=== PATIENT | female | born 1940 | race African-American/Black ===

== ENCOUNTER 2018-06-01 18:46 | Emergency (ER) | payer MEDICARE ==
[~2018-06-01] VITALS: Ht 167.6 cm; Wt 64.0 kg
[2018-06-01] MEDS ORDERED: ONDANSETRON HCL 4MG/2ML INJ IV STA (19:20)
[2018-06-01] MEDS ORDERED: MORPHINE SULFATE 4 MG/ML CPJ (NOT FOR IM USE) IV ONE (19:30)
[2018-06-01 19:53] LABS: HEMATOCRIT. 31.5 % (36.0-48.0); HEMOGLOBIN. 10.3 g/dL (12.0-16.0); MEAN CORPUSCULAR HEMOGLOBIN 28.1 pg (28.0-32.0); MEAN PLATELET VOLUME 7.8 fl (7.4-10.4); PLATELET 304 x1000/uL (130-400); RED BLOOD CELL COUNT 3.66 mill/uL (4.2-5.4); RED CELL DISTRIBUTION WIDTH 17.1 % (11.6-14.6)
[2018-06-01 19:59] LABS: CHLORIDE 102 mEq/L (98-107)
[2018-06-01 20:02] LABS: INR 1.1
[2018-06-01 20:12] LABS: PLATELET ESTIMATE NORMAL
[2018-06-01] MEDS ORDERED: SODIUM CHLORIDE 0.9% 500 ML IV ONE (20:38)
[2018-06-01 22:56] VITALS: BP 128/57
[2018-06-01] MEDS ORDERED: LEVOFLOXACIN 250MG TABLET PO ONE (23:00)
[2018-06-01] MEDS ORDERED: METRONIDAZOLE 500MG TABLET PO ONE (23:00)
== END 2018-06-01 23:17 | disposition home or self-care (01) ==
LOC: ER 20:13 → CANBEDREQ 06-02 00:38 → SUPCPDRO 06-02 10:38
DX: K80.42 Calculus of bile duct with acute cholecystitis without obstruction (principal); I10 Essential (primary) hypertension; D64.9 Anemia, unspecified; Z86.73 Personal history of transient ischemic attack (TIA), and cerebral infarction without residual deficits; Z98.890 Other specified postprocedural states
CPT/HCPCS: 36415; 76705; 80053; 83690; 85025; 85610; 96361; 96374; 96375; 99284; J2270; J2405; J7030

== ENCOUNTER 2021-08-06 09:14 | Inpatient (IN) | payer MEDICARE ==
[~2021-08-06] VITALS: Ht 157.5 cm; Wt 68.0 kg
[2021-08-06 11:14] LABS: CHLORIDE 112 mEq/L (98-107)
[2021-08-06 11:19] LABS: PROTHROMBIN TIME 10.7 sec (9.6-11.0)
[2021-08-06 13:34] LABS: BASOPHILS % 0.5 % (0.0-2.0); EOSINOPHILS % 1.3 % (0.0-5.0); HEMATOCRIT. 44.6 % (36.0-48.0); HEMOGLOBIN. 14.8 g/dL (12.0-16.0); LYMPHOCYTES % 8.5 % (20.0-50.0); MEAN CORPUSCULAR HEMOGLOBIN 29.4 pg (28.0-32.0); MEAN CORPUSCULAR VOLUME 88.6 fL (81.0-99.0); MONOCYTES % 3.6 % (2.0-8.0); NEUTROPHILS % 86.1 % (40.0-76.0); PLATELET 167 x1000/uL (130-400); RED BLOOD CELL COUNT 5.04 mill/uL (4.2-5.4); RED CELL DISTRIBUTION WIDTH 15.5 % (11.6-14.6)
[2021-08-06] MEDS ORDERED: CLONIDINE 0.1MG TABLET PO PRN (14:45)
[2021-08-06] MEDS ORDERED: ONDANSETRON HCL 4MG/2ML INJ IV PRN (14:45)
[2021-08-06] MEDS: AMLODIPINE 10MG TABLET PO SCH (14:45)
[2021-08-06] MEDS ORDERED: ACETAMINOPHEN 325MG TABLET PO PRN (14:45)
[2021-08-06] MEDS ORDERED: HYDROCODONE/ACETAMINOPHEN 5/325MG TABLET PO PRN (14:45)
[2021-08-06] MEDS ORDERED: GUAIFENESIN 200MG/10ML SUGAR FREE UDC PO PRN (14:45)
[2021-08-06] MEDS ORDERED: DOCUSATE SODIUM 100MG CAPSULE PO PRN (14:45)
[2021-08-06] MEDS ORDERED: NALOXONE HCL 0.4MG/ML VIAL IV PRN (15:00)
[2021-08-06] MEDS: ENOXAPARIN 80MG/0.8ML SYR SUBCUT SCH (15:15)
[2021-08-06 20:58] VITALS: BP 143/71
[2021-08-07] VITALS: BP 141/63
[2021-08-07 04:00] VITALS: BP 145/54
[2021-08-07] MEDS: ENOXAPARIN 80MG/0.8ML SYR SUBCUT SCH ×2 (05:31→17:38)
[2021-08-07 08:00] VITALS: BP 160/62
[2021-08-07 08:07] LABS: BASOPHILS % 0.2 % (0.0-2.0); EOSINOPHILS % 0.8 % (0.0-5.0); HEMOGLOBIN. 14.1 g/dL (12.0-16.0); LYMPHOCYTES % 8.6 % (20.0-50.0); MEAN CORPUSCULAR HEMOGLOBIN 29.6 pg (28.0-32.0); MEAN CORPUSCULAR VOLUME 88.5 fL (81.0-99.0); MEAN PLATELET VOLUME 9.6 fl (7.4-10.4); MONOCYTES % 4.7 % (2.0-8.0); NEUTROPHILS % 85.7 % (40.0-76.0); PLATELET 153 x1000/uL (130-400); RED BLOOD CELL COUNT 4.75 mill/uL (4.2-5.4); RED CELL DISTRIBUTION WIDTH 15.5 % (11.6-14.6)
[2021-08-07 08:23] LABS: CHLORIDE 112 mEq/L (98-107)
[2021-08-07 08:42] LABS: HDL CHOLESTEROL 58 mg/dL (40-59)
[2021-08-07 08:47] LABS: LDL CHOLESTEROL 89 mg/dL (5-100)
[2021-08-07] MEDS: AMLODIPINE 10MG TABLET PO SCH (08:49)
[2021-08-07 12:00] VITALS: BP 154/65
[2021-08-07 16:00] VITALS: BP 124/70
[2021-08-07 17:30] VITALS: BP 124/70
== END 2021-08-07 18:12 | disposition home or self-care (01) | DRG 300 ==
LOC: ER 09:14 → MICUSO 12:30 → EDBEDREQ 12:42 → EDBEDREQTM 12:42 → 6WST 20:18
PROVIDERS: ADMIT Hospitalist; ATTEND Hospitalist
DX: I82.401 Acute embolism and thrombosis of unspecified deep veins of right lower extremity (principal); E44.1 Mild protein-calorie malnutrition; Z20.822 Contact with and (suspected) exposure to COVID-19; I10 Essential (primary) hypertension; I16.0 Hypertensive urgency; T45.515A Adverse effect of anticoagulants, initial encounter; Z79.01 Long term (current) use of anticoagulants; Z86.73 Personal history of transient ischemic attack (TIA), and cerebral infarction without residual deficits; Z68.27 Body mass index [BMI] 27.0-27.9, adult; Z91.19 Patient's noncompliance with other medical treatment and regimen; Z86.718 Personal history of other venous thrombosis and embolism
CPT/HCPCS: 36415; 73562; 80053; 80061; 85025; 87426; 93971; 97162; 99291; J1650